=== PATIENT | male | born 1965 | race Caucasian/White ===

== ENCOUNTER 2021-06-19 11:09 | Day surgery (SDC) | payer MEDICARE, OTHER ==
[~2021-06-19] VITALS: Ht 167.6 cm; Wt 72.0 kg
[~2021-06-19 11:09] MED LIST: Crestor20 MG PO; DOCU100; OMEP20ER PO
== END 2021-06-19 13:33 | disposition home or self-care (01) ==
LOC: ORSCSDS 11:09
DX: K21.9 Gastro-esophageal reflux disease without esophagitis (principal); D12.2 Benign neoplasm of ascending colon; D12.3 Benign neoplasm of transverse colon; D12.5 Benign neoplasm of sigmoid colon; K62.1 Rectal polyp; K57.30 Diverticulosis of large intestine without perforation or abscess without bleeding; K64.8 Other hemorrhoids; Z12.11 Encounter for screening for malignant neoplasm of colon; Z86.010 Personal history of colon polyps; K74.60 Unspecified cirrhosis of liver; E78.5 Hyperlipidemia, unspecified; Z79.899 Other long term (current) drug therapy; Z87.891 Personal history of nicotine dependence
CPT/HCPCS: 88305; J0330; J0461; J2405; J2704; J7120

== ENCOUNTER → 2022-02-13 | Outpatient (CLI) | payer MEDICARE, OTHER | END | disposition home or self-care (01) | LOC: LAB 12:24 → LAB SHORT 12:24 | DX: R39.82 Chronic bladder pain (principal) | CPT/HCPCS: 87086 ==

== ENCOUNTER → 2024-12-25 | Outpatient (CLI) | payer MEDICARE, OTHER ==
[2024-12-25 15:10] LABS: U Amphetamine Screen Not Detected; U Barbituate Screen Not Detected; U Benzodiazapine Screen Not Detected; U Buprenorphine Screen Not Detected; U Cannabinoids Screen Not Detected; U Cocaine Screen Not Detected; U Methadone Screen Not Detected; U Methamphetamine Screen Not Detected; U Opiates Screen DETECTED; U Oxycodone Screen DETECTED; U Phencyclidine Screen Not Detected
[2024-12-29 20:25] LABS: 6-ACETYLMORPHINE, URN, QUANT <10 ng/mL; CODEINE, URN, QUANT <20 ng/mL; HYDROCODONE, URN, QUANT 38 ng/mL; HYDROMORPHONE, URN, QUANT <20 ng/mL; MORPHINE, URN, QUANT <20 ng/mL; NORHYDROCODONE, URN, QUANT 40 ng/mL; NOROXYCODONE, URN, QUANT 1205 ng/mL; NOROXYMORPHONE, URN, QUANT <20 ng/mL; OXYCODONE, URN, QUANT 1477 ng/mL; OXYMORPHONE, URN, QUANT <20 ng/mL
== END | disposition home or self-care (01) ==
LOC: LAB 13:49 → LAB SHORT 13:49
PROVIDERS: Internal Medicine
DX: R89.2 Abnormal level of other drugs, medicaments and biological substances in specimens from other organs, systems and tissues (principal); Z79.899 Other long term (current) drug therapy
CPT/HCPCS: G0480

== ENCOUNTER 2025-07-18 07:57 | Inpatient (IN) | payer MEDICARE ==
[~2025-07-18] VITALS: Ht 167.6 cm; Wt 73.8 kg
[2025-07-18] MEDS ORDERED: Ketorolac Tromethamine 30mg Vial IM ONE (08:55)
[2025-07-18] MEDS ORDERED: Ketorolac Tromethamine 15mg Vial IV ONE (10:25)
[2025-07-18] MEDS ORDERED: AMLODIPINE-BEN1 EAC2 PO (10:39)
[2025-07-18] MEDS ORDERED: OXYC5 PO (10:40)
[2025-07-18] MEDS ORDERED: TAMSULOSIN HCL0.4 M1 PO (10:41)
[2025-07-18] MEDS ORDERED: BUSPIRONE HCL10 M6 PO (10:41)
[2025-07-18] MEDS ORDERED: NEURONTIN300 MG PO (10:41)
[2025-07-18 10:42] LABS: BASOPHILS ABSOLUTE AUTO 0.07 K/mm3 (0.00-0.23); BASOPHILS PERCENT AUTO 0 % (0-2); EOSINOPHILS ABSOLUTE AUTO 0.13 K/mm3 (0.00-0.68); EOSINOPHILS PERCENT AUTO 1 % (0-6); Hematocrit 43.4 % (37.0-53.0); Hemoglobin 14.8 g/dL (13.5-17.5); IMMATURE GRAN ABSOLUTE AUTO 0.06 K/mm3 (0.00-0.10); IMMATURE GRAN PERCENT AUTO 0 % (0-1); LYMPHOCYTES ABSOLUTE AUTO 1.83 K/mm3 (0.84-5.20); LYMPHOCYTES PERCENT AUTO 12 % (21-46); MONOCYTES ABSOLUTE AUTO 1.83 K/mm3 (0.16-1.47); MONOCYTES PERCENT AUTO 12 % (4-13); Mean Corpuscular HGB Conc 34.1 g/dL (31.5-36.5); Mean Corpuscular Volume 88 fL (80-100); NEUTROPHILS ABSOLUTE AUTO 12.06 K/mm3 (1.96-9.15); NEUTROPHILS PERCENT AUTO 75 % (41-73); NRBC ABSOLUTE 0.00 K/mm3 (0.00-0.02); NRBC Auto 0.0 /100 WBC (0.0-0.2); Platelet Count 238 K/mm3 (150-400); RDW Coefficient Variation 13.6 % (11.7-14.2); RDW Standard Deviation 43.9 fL (35.1-46.3)
[2025-07-18 11:01] LABS: Alanine Aminotransfer (ALT/SGP 48.0 U/L (12-78); Albumin, Blood 4.8 g/dL (3.4-5.0); Albumin/Globulin Ratio 1.2 (0.8-1.8); Anion Gap 8.0 mmol/L (3-11); Aspartate Aminotrans (AST/SGOT 35.0 U/L (12-37); Bilirubin, Total 0.9 mg/dL (0.1-1.0); Blood Urea Nitrogen 12.0 mg/dL (8-24); CO2, Blood 27.0 mmol/L (21-32); Calcium, Blood 9.7 mg/dL (8.5-10.1); Chloride, Blood 103.0 mmol/L (98-108); Creatinine, Blood 0.85 mg/dL (0.60-1.20); Globulin, Blood 3.9 g/dL (2.2-4.0); Glucose, Blood 101.0 mg/dL (70-99); Potassium, Blood 4.1 mmol/L (3.5-5.5); Sodium, Blood 134.0 mmol/L (136-145); Total Protein, Blood 8.7 g/dL (6.4-8.2)
[2025-07-18] MEDS ORDERED: HYDROmorphone HCl/Pf 1MG SYR IV ONE ×3 (11:05→15:20)
[2025-07-18 12:07] LABS: Source, Urine Clean Catch
[2025-07-18 12:19] LABS: Bilirubin, Urine Neg (Neg); Color, Urine Yellow (P-Yellow); Glucose Qualitative, Urine Neg (Neg); Ketones, Urine Neg (Neg); Leukocyte Esterase, Urine 1+ (Neg); Protein, Urine 1+ (Neg); Specific Gravity, Urine 1.010 (1.003-1.022); Urobilinogen, Urine NORM (Normal)
[2025-07-18 12:43] LABS: Red Blood Cells, Urine 0-2 /hpf (0-2)
[2025-07-18] MEDS ORDERED: Piperacillin/Tazobactam Sod 3.375 GM in NS 100 ML IV ONE (12:45)
[2025-07-18] MEDS ORDERED: HYDROmorphone HCl/Pf 1MG SYR IV PRN (15:45)
[2025-07-18] MEDS ORDERED: DiphenhydrAMINE HCl 50 MG/ML 1ML Vial IV PRN (15:45)
[2025-07-18 17:56] VITALS: BP 127/71
[2025-07-18] MEDS ORDERED: Piperacillin/Tazobactam Sod 3.375 GM in NS 100 ML IV SCH (18:00)
[2025-07-18] MEDS ORDERED: Crestor40 MG PO (18:35)
--- NOTE | 2025-07-18 18:52 | NUR ---
ADMIT TO MED FLOOR. ABLE TO STAND AND TRANSFER IND. ALERT AND ORIENTED. HEARING AIDS IN PLACE. COMPLAINS OF LLQ PAIN. BOWEL TONES PRESENT. CLEAR LIQUID DIET. MEDICATED FOR PAIN. ON ROOM AIR. VITAL SIGNS STABLE. DRINKING CHICKEN BROTH AT THIS TIME. ORIENTED TO ROOM/UNIT. PATIENT UPDATED FAMILY ON PERSONAL PHONE. IV ABX INFUSING. CALL LIGHT IN REACH. DENIES NEEDS AT THIS TIME.
[2025-07-18 19:34] VITALS: BP 103/63
[2025-07-18] MEDS ORDERED: Lactobacil 2-S.Thermo-Bifido 1 1 Cap PO SCH (21:00)
[2025-07-19 05:27] VITALS: BP 127/72
--- NOTE | 2025-07-19 05:50 | NUR ---
PT A&O X4, VS WNL, PO INTAKE POOR D/T INCREASED PAIN, ALSO HAS PAIN WITH VOIDING. REMAINS ON IVF, AND IVABX. PO PAIN MEDS PT STATES ARE NOT EFFECTIVE, AND HE USES THOSE AT HOME, IV DILAUDID UTILIZED X2. PLAN TO HAVE US OF BLADDER TODAY.
[2025-07-19 06:52] LABS: BASOPHILS ABSOLUTE AUTO 0.06 K/mm3 (0.00-0.23); BASOPHILS PERCENT AUTO 1 % (0-2); EOSINOPHILS ABSOLUTE AUTO 0.12 K/mm3 (0.00-0.68); EOSINOPHILS PERCENT AUTO 1 % (0-6); Hematocrit 36.2 % (37.0-53.0); Hemoglobin 12.3 g/dL (13.5-17.5); IMMATURE GRAN ABSOLUTE AUTO 0.05 K/mm3 (0.00-0.10); IMMATURE GRAN PERCENT AUTO 0 % (0-1); LYMPHOCYTES ABSOLUTE AUTO 1.50 K/mm3 (0.84-5.20); LYMPHOCYTES PERCENT AUTO 13 % (21-46); MONOCYTES ABSOLUTE AUTO 1.00 K/mm3 (0.16-1.47); MONOCYTES PERCENT AUTO 9 % (4-13); Mean Corpuscular HGB Conc 34.0 g/dL (31.5-36.5); Mean Corpuscular Volume 89 fL (80-100); NEUTROPHILS ABSOLUTE AUTO 8.63 K/mm3 (1.96-9.15); NEUTROPHILS PERCENT AUTO 76 % (41-73); NRBC ABSOLUTE 0.00 K/mm3 (0.00-0.02); NRBC Auto 0.0 /100 WBC (0.0-0.2); Platelet Count 208 K/mm3 (150-400); RDW Coefficient Variation 13.5 % (11.7-14.2); RDW Standard Deviation 44.6 fL (35.1-46.3)
[2025-07-19 07:10] VITALS: BP 108/68
[2025-07-19 07:30] LABS: Alanine Aminotransfer (ALT/SGP 39.0 U/L (12-78); Albumin, Blood 3.8 g/dL (3.4-5.0); Albumin/Globulin Ratio 1.2 (0.8-1.8); Anion Gap 9.0 mmol/L (3-11); Aspartate Aminotrans (AST/SGOT 24.0 U/L (12-37); Bilirubin, Total 2.1 mg/dL (0.1-1.0); Blood Urea Nitrogen 12.0 mg/dL (8-24); CO2, Blood 25.0 mmol/L (21-32); Calcium, Blood 9.2 mg/dL (8.5-10.1); Chloride, Blood 104.0 mmol/L (98-108); Creatinine, Blood 0.89 mg/dL (0.60-1.20); Globulin, Blood 3.3 g/dL (2.2-4.0); Glucose, Blood 82.0 mg/dL (70-99); Magnesium, Blood 2.0 mg/dL (1.6-2.4); Potassium, Blood 3.9 mmol/L (3.5-5.5); Sodium, Blood 134.0 mmol/L (136-145); Total Protein, Blood 7.1 g/dL (6.4-8.2)
--- NOTE | 2025-07-19 07:39 | NUR ---
ASSUMPTION OF CARE: THIS RN ASSUMED CARE OF PATIENT. AWAKE DURING SHIFT CHANGE REPORT. LYING SUPINE IN BED. CAREGIVER, JAYLEN, AT BEDSIDE. STATES CAREGIVER RELIEF c BE HERE AT NOON. BREATHING EVEN AND UNLABORED c RA. BED IN LOWEST POSITION. CALL LIGHT WITHIN REACH. ACUTE NEEDS MET.
--- NOTE | 2025-07-19 07:41 | NUR ---
ASSUMPTION OF CARE: THIS RN ASSUMED CARE OF PATIENT. AWAKE DURING SHIFT CHANGE REPORT. LYING IN BED c HOB ELEVATED. BREATHING EVEN AND UNLABORED c RA. BED IN LOWEST POSITION. CALL LIGHT WITHIN REACH. ACUTE NEEDS MET.
[2025-07-19 15:26] VITALS: BP 105/70
--- NOTE | 2025-07-19 18:21 | NUR ---
END OF SHIFT SUMMARY: A&Ox4. PLEASANT AND COOPERATIVE WITH CARE. CALLS APPROPRIATELY AND IS ABLE TO ADVOCATE NEEDS EFFECTIVELY. VSS. BREATHING EVEN AND UNLABORED c RA. CONTINENT OF BOWEL AND BLADDER; LBM TODAY. TOLERATING FULL LIQUID DIET. AMBULATES INDEPENDENTLY. MEDS WHOLE c FLUIDS. BILI INCREASED FROM 0.9 TO 2.1; ABD US WNL. SURG CONSULTED FOR INTRAMURAL ABSCESS s SURGICAL INTERVENTION REQUIRED. CONTINUE IV ABx. MEDICATED x2 BT PAIN. FAMILY IN TO VISIT THIS EVENING. BED IN LOWEST POSITION, CALL LIGHT WITHIN REACH, ALL NEEDS MET. REPORT TO ONCOMING NURSE.
[2025-07-19 19:08] VITALS: BP 105/64
[2025-07-20 02:12] VITALS: BP 104/67
--- NOTE | 2025-07-20 03:12 | NUR ---
CUSTOMER SERVICE TELLER SUMMARY VSS. ALERT AND ORIENTED. COOPERATIVE WITH CARE. VOICED INTERMITTENT PAIN OF ABD, RECEIVING ANALGESICS APPROX Q 3 HRS, SOME SCHEDULED AT CERTAIN TIMES AND OCCASIONAL PRNS - SEE MAR FOR DETAILS. UP AD SWATHI, IV ANTIBIOTICS, ETC INFUSING. HAS BEEN RESTING QUIETLY WITH FEW INTERRUPTIONS. CALL LIGHT IN REACH, RAILS UP X 2 AND BED IN LOW POSITION FOR SAFETY. WILL CONTINUE TO MONITOR.
[2025-07-20 04:56] LABS: BASOPHILS ABSOLUTE AUTO 0.05 K/mm3 (0.00-0.23); BASOPHILS PERCENT AUTO 1 % (0-2); EOSINOPHILS ABSOLUTE AUTO 0.16 K/mm3 (0.00-0.68); EOSINOPHILS PERCENT AUTO 2 % (0-6); Hematocrit 37.4 % (37.0-53.0); Hemoglobin 12.7 g/dL (13.5-17.5); IMMATURE GRAN ABSOLUTE AUTO 0.02 K/mm3 (0.00-0.10); IMMATURE GRAN PERCENT AUTO 0 % (0-1); LYMPHOCYTES ABSOLUTE AUTO 1.84 K/mm3 (0.84-5.20); LYMPHOCYTES PERCENT AUTO 22 % (21-46); MONOCYTES ABSOLUTE AUTO 0.91 K/mm3 (0.16-1.47); MONOCYTES PERCENT AUTO 11 % (4-13); Mean Corpuscular HGB Conc 34.0 g/dL (31.5-36.5); Mean Corpuscular Volume 90 fL (80-100); NEUTROPHILS ABSOLUTE AUTO 5.43 K/mm3 (1.96-9.15); NEUTROPHILS PERCENT AUTO 65 % (41-73); NRBC ABSOLUTE 0.00 K/mm3 (0.00-0.02); NRBC Auto 0.0 /100 WBC (0.0-0.2); Platelet Count 212 K/mm3 (150-400); RDW Coefficient Variation 13.6 % (11.7-14.2); RDW Standard Deviation 44.6 fL (35.1-46.3)
[2025-07-20 05:18] LABS: Alanine Aminotransfer (ALT/SGP 47.0 U/L (12-78); Albumin, Blood 3.6 g/dL (3.4-5.0); Albumin/Globulin Ratio 1.0 (0.8-1.8); Anion Gap 8.0 mmol/L (3-11); Aspartate Aminotrans (AST/SGOT 29.0 U/L (12-37); Bilirubin, Total 0.9 mg/dL (0.1-1.0); Blood Urea Nitrogen 9.0 mg/dL (8-24); CO2, Blood 27.0 mmol/L (21-32); Calcium, Blood 8.9 mg/dL (8.5-10.1); Chloride, Blood 108.0 mmol/L (98-108); Creatinine, Blood 0.85 mg/dL (0.60-1.20); Globulin, Blood 3.5 g/dL (2.2-4.0); Glucose, Blood 94.0 mg/dL (70-99); Magnesium, Blood 2.1 mg/dL (1.6-2.4); Potassium, Blood 4.0 mmol/L (3.5-5.5); Sodium, Blood 139.0 mmol/L (136-145); Total Protein, Blood 7.1 g/dL (6.4-8.2)
--- NOTE | 2025-07-20 07:17 | NUR ---
ASSUMED CARE OF PATIENT AT THIS TIME. PATIENT RESTING IN BED, DENIES NEEDS OTHER THAN PAIN MEDICATION IF TIME SOON. PATIENT ON FULL LIQUID DIET CURRENTLY.
[2025-07-20 07:59] VITALS: BP 123/82
[2025-07-20] MEDS ORDERED: Polyethylene Glycol 3350 17 gm PO SCH ×2 (09:00→16:30)
[2025-07-20] MEDS ORDERED: Magnesium Hydroxide Conc 10 ML UDC PO PRN (15:10)
[2025-07-20 15:31] VITALS: BP 132/73
[2025-07-20] MEDS ORDERED: Ondansetron HCl 2 MG / ML 2ML Vial IV PRN (15:45)
--- NOTE | 2025-07-20 18:57 | NUR ---
END OF SHIFT NOTE. PATIENT A/O X4 TODAY. AMBULATED HALLS X4 TODAY. IND IN ROOM AND TO RESTROOM. SOME N/V TODAY, NEW ORDER FOR ZOFRAN IV. FULL LIQUID DIET.
[2025-07-20 19:21] VITALS: BP 140/65
[2025-07-21 03:31] VITALS: BP 97/70
--- NOTE | 2025-07-21 04:22 | NUR ---
ROUSTABOUT SUMMARY BP LOW NORMAL, OTHERWISE VSS. ALERT AND ORIENTED. COOPERATIVE WITH CARE. AFFECT CHEERFUL WHEN CONVERSING WITH STAFF. UP AD WSATHI. HAS BEEN RESTING QUIETLY WITH FEW INTERRUPTIONS. IV ANTIBIOTICS AND PAIN MEDS ADMNISTERED ORDERED FOR ABD DISCOMFORT- SEE MAR FOR DETAILS. NO NOTED S/S ACUTE DISTRESS. CALL LIGHT IN REACH, RAILS UP X 2 AND BED IN LOW POSITION FOR SAFETY.
[2025-07-21 04:47] LABS: BASOPHILS ABSOLUTE AUTO 0.05 K/mm3 (0.00-0.23); BASOPHILS PERCENT AUTO 1 % (0-2); EOSINOPHILS ABSOLUTE AUTO 0.24 K/mm3 (0.00-0.68); EOSINOPHILS PERCENT AUTO 3 % (0-6); Hematocrit 34.1 % (37.0-53.0); Hemoglobin 11.6 g/dL (13.5-17.5); IMMATURE GRAN ABSOLUTE AUTO 0.02 K/mm3 (0.00-0.10); IMMATURE GRAN PERCENT AUTO 0 % (0-1); LYMPHOCYTES ABSOLUTE AUTO 1.79 K/mm3 (0.84-5.20); LYMPHOCYTES PERCENT AUTO 25 % (21-46); MONOCYTES ABSOLUTE AUTO 0.71 K/mm3 (0.16-1.47); MONOCYTES PERCENT AUTO 10 % (4-13); Mean Corpuscular HGB Conc 34.0 g/dL (31.5-36.5); Mean Corpuscular Volume 91 fL (80-100); NEUTROPHILS ABSOLUTE AUTO 4.28 K/mm3 (1.96-9.15); NEUTROPHILS PERCENT AUTO 60 % (41-73); NRBC ABSOLUTE 0.00 K/mm3 (0.00-0.02); NRBC Auto 0.0 /100 WBC (0.0-0.2); Platelet Count 203 K/mm3 (150-400); RDW Coefficient Variation 13.4 % (11.7-14.2); RDW Standard Deviation 43.9 fL (35.1-46.3)
[2025-07-21 05:22] LABS: Alanine Aminotransfer (ALT/SGP 41.0 U/L (12-78); Albumin, Blood 3.3 g/dL (3.4-5.0); Albumin/Globulin Ratio 1.1 (0.8-1.8); Anion Gap 9.0 mmol/L (3-11); Aspartate Aminotrans (AST/SGOT 22.0 U/L (12-37); Bilirubin, Total 0.6 mg/dL (0.1-1.0); Blood Urea Nitrogen 5.0 mg/dL (8-24); CO2, Blood 27.0 mmol/L (21-32); Calcium, Blood 8.6 mg/dL (8.5-10.1); Chloride, Blood 107.0 mmol/L (98-108); Creatinine, Blood 0.84 mg/dL (0.60-1.20); Globulin, Blood 3.1 g/dL (2.2-4.0); Glucose, Blood 97.0 mg/dL (70-99); Magnesium, Blood 1.8 mg/dL (1.6-2.4); Potassium, Blood 3.9 mmol/L (3.5-5.5); Sodium, Blood 139.0 mmol/L (136-145); Total Protein, Blood 6.4 g/dL (6.4-8.2)
[2025-07-21 08:07] VITALS: BP 135/80
[2025-07-21 15:29] VITALS: BP 129/73
--- NOTE | 2025-07-21 16:25 | NUR ---
SHIFT SUMMARY: PATIENT A&OX4/INDEPENDENT; TOLERATING PO INTAKE. ADVANCED TO REGULAR DIET. LR D/C'D, CONTINUES TO GET IV ANTIBIOTICS AND PAIN MEDICATION. PER DR. RICHARDSON TO ENCOURAGE PATIENT TO NOT USE IV PAIN MEDICATIONS IN PREPARATION FOR DISCHARGE TOMORROW 07/22/25. PATIENT IN ROOM, ALERT, CALL LIGHT WITHIN REACH, NO SIGNS OR SYMPTOMS OF DISTRESS, PLAN OF CARE ONGOING.
[2025-07-21 19:40] VITALS: BP 115/102
[2025-07-22] MEDS ORDERED: NS 250 ML IV PRN (00:20)
[2025-07-22 03:33] VITALS: BP 106/70
--- NOTE | 2025-07-22 03:56 | NUR ---
SHIFT SUMMARY PATIENT HAD NO ACUTE CHANGES. ALERT ORIENTED AND INDEPENDENT IN ROOM. DENIES CHEST PAIN, SOB, AND N/V. VSS/AFEBRILE. PIV INTACT. IV ABX INFUSED. REPORTED ABDOMEN PAIN AND IV DILAUDID 1 MG GIVEN PER EMAR. SCHEDULE OXYCODONE. SLEPT WHEN PAIN MANAGED. CALL LIGHT IN REACH. BED IN LOWEST POSITION. WILL CONTINUE TO MONITOR UNTIL DAY SHIFT NURSE ASSUMES CARE.
[2025-07-22 05:14] LABS: BASOPHILS ABSOLUTE AUTO 0.05 K/mm3 (0.00-0.23); BASOPHILS PERCENT AUTO 1 % (0-2); EOSINOPHILS ABSOLUTE AUTO 0.26 K/mm3 (0.00-0.68); EOSINOPHILS PERCENT AUTO 3 % (0-6); Hematocrit 34.8 % (37.0-53.0); Hemoglobin 11.9 g/dL (13.5-17.5); IMMATURE GRAN ABSOLUTE AUTO 0.03 K/mm3 (0.00-0.10); IMMATURE GRAN PERCENT AUTO 0 % (0-1); LYMPHOCYTES ABSOLUTE AUTO 2.02 K/mm3 (0.84-5.20); LYMPHOCYTES PERCENT AUTO 20 % (21-46); MONOCYTES ABSOLUTE AUTO 0.98 K/mm3 (0.16-1.47); MONOCYTES PERCENT AUTO 9 % (4-13); Mean Corpuscular HGB Conc 34.2 g/dL (31.5-36.5); Mean Corpuscular Volume 89 fL (80-100); NEUTROPHILS ABSOLUTE AUTO 7.04 K/mm3 (1.96-9.15); NEUTROPHILS PERCENT AUTO 68 % (41-73); NRBC ABSOLUTE 0.00 K/mm3 (0.00-0.02); NRBC Auto 0.0 /100 WBC (0.0-0.2); Platelet Count 240 K/mm3 (150-400); RDW Coefficient Variation 13.2 % (11.7-14.2); RDW Standard Deviation 43.1 fL (35.1-46.3)
[2025-07-22 06:21] LABS: Alanine Aminotransfer (ALT/SGP 38.0 U/L (12-78); Albumin, Blood 3.4 g/dL (3.4-5.0); Albumin/Globulin Ratio 1.0 (0.8-1.8); Anion Gap 8.0 mmol/L (3-11); Aspartate Aminotrans (AST/SGOT 17.0 U/L (12-37); Bilirubin, Total 0.4 mg/dL (0.1-1.0); Blood Urea Nitrogen 8.0 mg/dL (8-24); CO2, Blood 28.0 mmol/L (21-32); Calcium, Blood 8.9 mg/dL (8.5-10.1); Chloride, Blood 108.0 mmol/L (98-108); Creatinine, Blood 0.91 mg/dL (0.60-1.20); Globulin, Blood 3.5 g/dL (2.2-4.0); Glucose, Blood 95.0 mg/dL (70-99); Magnesium, Blood 1.9 mg/dL (1.6-2.4); Potassium, Blood 3.8 mmol/L (3.5-5.5); Sodium, Blood 140.0 mmol/L (136-145); Total Protein, Blood 6.9 g/dL (6.4-8.2)
[2025-07-22 07:12] VITALS: BP 107/75
[2025-07-22] MEDS ORDERED: AMOCLA875 PO (13:44)
[2025-07-22] MEDS ORDERED: DOCU100 PO (13:45)
--- NOTE | 2025-07-22 15:16 | NUR ---
DISCHARGE NOTE: WENT OVER DISCHARGE WITH THE PATIENT. PATIENT IV REMOVED. HE GOT HIMSELF DRESSED AND COLLECTED BELONGINGS. PATIENT WALKED OUT OF UNIT WITH SON. NO SIGNS OR SYMPTOMS OF DISTRESS WITH DISCHARGE.
== END 2025-07-22 15:05 | disposition home or self-care (01) | DRG 392 ==
LOC: ER 07:57 → MEDS 15:41
PROVIDERS: Student in an Organized Health Care Education/Training Program; ADMIT Family Medicine
DX: K57.20 Diverticulitis of large intestine with perforation and abscess without bleeding (principal); I10 Essential (primary) hypertension; E78.5 Hyperlipidemia, unspecified; F41.9 Anxiety disorder, unspecified; N40.0 Benign prostatic hyperplasia without lower urinary tract symptoms; G47.00 Insomnia, unspecified; G62.9 Polyneuropathy, unspecified; Z91.81 History of falling; Z87.81 Personal history of (healed) traumatic fracture; Z90.49 Acquired absence of other specified parts of digestive tract; Z98.890 Other specified postprocedural states; Z88.5 Allergy status to narcotic agent; Z79.899 Other long term (current) drug therapy; Z87.891 Personal history of nicotine dependence
CPT/HCPCS: 36415; 74177; 76705; 76857; 80053; 81001; 83735; 85025; 87086; 96365-59; 96375; 96376; 99285-25; A9270; J1171; J1885; J2405; J2543; J7050; J7120; Q9967

== ENCOUNTER → 2025-10-20 | Outpatient (CLI) | payer MEDICARE ==
[~2025-10-20] MED LIST changes: +AMLODIPINE-BEN1 EAC2 PO; +AMOCLA875 PO; +BUSPIRONE HCL10 M6 PO; +Crestor40 MG PO; +DOCU100 PO; +NEURONTIN300 MG PO; +OXYC5 PO; +TAMSULOSIN HCL0.4 M1 PO
[2025-10-27 22:32] LABS: 6-ACETYLMORPHINE, URN, QUANT <10 ng/mL; CODEINE, URN, QUANT <20 ng/mL; HYDROCODONE, URN, QUANT <20 ng/mL; HYDROMORPHONE, URN, QUANT <20 ng/mL; MORPHINE, URN, QUANT <20 ng/mL; NORHYDROCODONE, URN, QUANT <20 ng/mL; NOROXYCODONE, URN, QUANT 3910 ng/mL; NOROXYMORPHONE, URN, QUANT <20 ng/mL; OXYCODONE, URN, QUANT 2750 ng/mL; OXYMORPHONE, URN, QUANT <20 ng/mL
== END | disposition home or self-care (01) ==
LOC: LAB SHORT 11:25 → LAB 11:25
PROVIDERS: Internal Medicine
DX: G89.4 Chronic pain syndrome (principal)
CPT/HCPCS: G0480